=== PATIENT | female | born 1965 | race Caucasian/White ===

== ENCOUNTER 2024-11-05 12:01 | Emergency (ER) | payer OTHER, BC ==
[2024-11-05] MEDS: Ibuprofen 600 MG Tab PO ONE (13:05)
[2024-11-05] MEDS: Acetaminophen 500 MG Tab PO ONE (13:05)
== END 2024-11-05 15:00 | disposition home or self-care (01) ==
LOC: MW.ED 12:01
DX: S52.611A Displaced fracture of right ulna styloid process, initial encounter for closed fracture (principal); Z75.8 Other problems related to medical facilities and other health care; W00.9XXA Unspecified fall due to ice and snow, initial encounter
CPT/HCPCS: 29125; 73110; 99283; A9270